=== PATIENT | female | born 1945 | race Caucasian/White ===

== ENCOUNTER 2024-05-28 13:34 | Inpatient (IN) | payer MEDICARE, OTHER ==
[~2024-05-28] VITALS: Ht 165.1 cm; Wt 62.6 kg
[2024-05-28 14:35] LABS: BASOPHILS # (AUTO) 0.1 (0.0-0.1); BASOPHILS % 0.4 % (0.0-1.0); EOSINOPHILS # (AUTO) 0.2 (0.0-0.4); EOSINOPHILS % 1.1 % (0.0-6.0); HEMATOCRIT 41.7 % (34.2-44.1); HEMOGLOBIN 13.4 g/dL (12.0-16.0); LYMPHOCYTES # (AUTO) 0.5 (1.0-3.2); LYMPHOCYTES % 3.7 % (18.0-39.1); MEAN CORPUSCULAR HEMOGLOBIN 29.5 pg (28-32); MEAN CORPUSCULAR HGB CONC 32.1 g/dL (31-35); MEAN CORPUSCULAR VOLUME 91.6 fL (81-99); MONOCYTES # (AUTO) 0.4 (0.2-0.8); NEUTROPHILS # (AUTO) 13.2 (2.1-6.9); NEUTROPHILS % 91.2 % (38.7-80.0); PLATELET COUNT 187 x10e3/uL (140-360); RED BLOOD COUNT 4.55 x10e6/uL (3.6-5.1); RED CELL DISTRIBUTION WIDTH 14.4 % (11.7-14.4); WHITE BLOOD COUNT 14.42 x10e3/uL (4.8-10.8)
[2024-05-28 14:40] LABS: INR 1.21; PROTHROMBIN TIME 15.9 seconds (11.9-14.5)
[2024-05-28 14:41] LABS: PARTIAL THROMBOPLASTIN TIME 32.6 seconds (23.8-35.5)
[2024-05-28 14:48] LABS: ALBUMIN 3.4 g/dL (3.5-5.0); ALBUMIN/GLOBULIN RATIO 0.8 (0.8-2.0); ANION GAP 17.9 mmol/L (8-16); CALCIUM 10.7 mg/dL (8.4-10.2); CREATININE, SERUM 1.53 mg/dL (0.57-1.11); POTASSIUM 3.9 mmol/L (3.5-5.1); TOTAL PROTEIN 7.8 g/dL (6.5-8.1)
[2024-05-28 14:54] LABS: TROPONIN I 0.014 ng/mL (0-0.300)
[2024-05-28] MEDS: SODIUM CHLORIDE 0.9% 1000ML 1,000 ML IV SCH ×2 (15:56→17:00)
[2024-05-28 15:57] LABS: BILIRUBIN,URINE NEGATIVE (NEGATIVE); CLARITY,URINE TURBID (CLEAR); COLOR,URINE YELLOW (YELLOW); GLUCOSE, URINE NEGATIVE (NEGATIVE); KETONES,URINE NEGATIVE (NEGATIVE); LEUKOCYTE ESTERASE ,URINE LARGE (NEGATIVE); NITRITE,URINE NEGATIVE (NEGATIVE); PH,URINE 7 (5 - 7); PROTEIN,URINE DIPSTICK >=300 (NEGATIVE); URINE UROBILINOGEN 0.2 mg/dL (0.2 - 1)
[2024-05-28] MEDS: ACETAMINOPHEN 1000 MG/100 ML IV STA (15:57)
[2024-05-28 16:08] LABS: BACTERIA,URINE MODERATE /HPF
[2024-05-28 16:09] LABS: AMORPHOUS SEDIMENT,URINE MANY (FEW)
[2024-05-28] MEDS: SODIUM CHLORIDE 0.9% 1000ML 1,000 ML IV STA (16:51)
[2024-05-28] MEDS ORDERED: SODIUM CHLORIDE FLUSH 10 ML SYR INJ PRN (17:00)
[2024-05-28] MEDS ORDERED: IOPAMIDOL 370 MG/ML 100 ML INFUS..BTL INJ ONE (17:00)
[2024-05-28 17:29] VITALS: PULSE 108; RESP 22; TEMP 99
[2024-05-28] MEDS: DIPHENHYDRAMINE HCL INJ 50 MG/ML VIAL IV ONE (18:36)
[2024-05-28 20:00] VITALS: BP 109/59; PULSE 77; RESP 17; TEMP 98.5; O2SAT 94
[2024-05-29] VITALS (7 sets, daily range): BP systolic 93–155; BP diastolic 53–82; PULSE 69–101; RESP 18–21; TEMP 98.3–100.3; O2SAT 19–100
[2024-05-29] MEDS ORDERED: TRAZODONE HCL100 MG PO (06:24)
[2024-05-29] MEDS ORDERED: CRESTOR40 MG PO (06:26)
[2024-05-29] MEDS ORDERED: CLOPIDOGREL75 MG PO (06:28)
[2024-05-29] MEDS ORDERED: LOSARTAN POTASS25 MG PO (06:29)
[2024-05-29] MEDS ORDERED: LEXAPRO20 MG PO (06:29)
[2024-05-29] MEDS ORDERED: ELIQUIS2.5 MG PO (06:30)
[2024-05-29] MEDS ORDERED: LEVOTHYROXINE88 MCG PO (06:31)
[2024-05-29] MEDS ORDERED: AMLODIPINE BESYL5 MG PO (06:32)
[2024-05-29] MEDS ORDERED: CENTRUM SILVER1 EAC8 PO (06:33)
[2024-05-29 15:41] LABS: BASOPHILS # (AUTO) 0.1 (0.0-0.1); BASOPHILS % 0.4 % (0.0-1.0); EOSINOPHILS # (AUTO) 0.1 (0.0-0.4); EOSINOPHILS % 0.2 % (0.0-6.0); HEMATOCRIT 38.1 % (34.2-44.1); HEMOGLOBIN 11.9 g/dL (12.0-16.0); LYMPHOCYTES # (AUTO) 1.1 (1.0-3.2); LYMPHOCYTES % 5.4 % (18.0-39.1); MEAN CORPUSCULAR HEMOGLOBIN 29.2 pg (28-32); MEAN CORPUSCULAR HGB CONC 31.2 g/dL (31-35); MEAN CORPUSCULAR VOLUME 93.6 fL (81-99); MONOCYTES # (AUTO) 0.9 (0.2-0.8); MONOCYTES % 4.5 % (4.4-11.3); NEUTROPHILS % 85.3 % (38.7-80.0); PLATELET COUNT 175 x10e3/uL (140-360); RED BLOOD COUNT 4.07 x10e6/uL (3.6-5.1); RED CELL DISTRIBUTION WIDTH 14.2 % (11.7-14.4); WHITE BLOOD COUNT 21.05 x10e3/uL (4.8-10.8)
[2024-05-29 15:58] LABS: ALBUMIN 2.5 g/dL (3.5-5.0); ALBUMIN/GLOBULIN RATIO 0.6 (0.8-2.0); ANION GAP 13.2 mmol/L (8-16); BILIRUBIN,TOTAL 0.6 mg/dL (0.2-1.2); CALCIUM 9.3 mg/dL (8.4-10.2); CREATININE, SERUM 1.02 mg/dL (0.57-1.11); TOTAL PROTEIN 6.5 g/dL (6.5-8.1)
[2024-05-29 15:59] LABS: POTASSIUM 3.2 mmol/L (3.5-5.1)
[2024-05-29] MEDS: APIXABAN 2.5 MG TABLET PO SCH (16:43)
[2024-05-29] MEDS: POTASSIUM CHLORIDE 20 MEQ TAB CR PO ONE (18:48)
[2024-05-29] MEDS: TRAZODONE HCL 50 MG TAB PO SCH (20:52)
[2024-05-30] VITALS (8 sets, daily range): BP systolic 120–146; BP diastolic 60–80; PULSE 60–82; RESP 16–20; TEMP 97.6–98.6; O2SAT 94–97
[2024-05-30] MEDS: LEVOTHYROXINE SODIUM 88 MCG TAB PO SCH (09:43)
[2024-05-30] MEDS: CLOPIDOGREL BISULFATE 75 MG TAB PO SCH (09:44)
[2024-05-30] MEDS: LOSARTAN POTASSIUM 25 MG TAB PO SCH (09:44)
[2024-05-30] MEDS: ESCITALOPRAM OXALATE 10 MG TAB PO SCH (09:44)
[2024-05-30 17:04] LABS: BASOPHILS # (AUTO) 0.1 (0.0-0.1); BASOPHILS % 0.4 % (0.0-1.0); EOSINOPHILS # (AUTO) 0.2 (0.0-0.4); HEMATOCRIT 35.6 % (34.2-44.1); HEMOGLOBIN 11.5 g/dL (12.0-16.0); LYMPHOCYTES # (AUTO) 1.1 (1.0-3.2); LYMPHOCYTES % 6.5 % (18.0-39.1); MEAN CORPUSCULAR HEMOGLOBIN 29.3 pg (28-32); MEAN CORPUSCULAR HGB CONC 32.3 g/dL (31-35); MEAN CORPUSCULAR VOLUME 90.6 fL (81-99); MONOCYTES % 6.2 % (4.4-11.3); NEUTROPHILS # (AUTO) 14.2 (2.1-6.9); NEUTROPHILS % 85.4 % (38.7-80.0); PLATELET COUNT 182 x10e3/uL (140-360); RED BLOOD COUNT 3.93 x10e6/uL (3.6-5.1); RED CELL DISTRIBUTION WIDTH 13.7 % (11.7-14.4); WHITE BLOOD COUNT 16.58 x10e3/uL (4.8-10.8)
[2024-05-31] VITALS (8 sets, daily range): BP systolic 118–161; BP diastolic 72–99; PULSE 65–77; RESP 16–18; TEMP 97.7–99.3; O2SAT 95–99
[2024-05-31] MEDS: LEVOTHYROXINE SODIUM 88 MCG TAB PO SCH (05:18)
[2024-05-31 06:17] LABS: BASOPHILS # (AUTO) 0.1 (0.0-0.1); BASOPHILS % 0.5 % (0.0-1.0); EOSINOPHILS # (AUTO) 0.1 (0.0-0.4); EOSINOPHILS % 0.9 % (0.0-6.0); HEMATOCRIT 36.7 % (34.2-44.1); HEMOGLOBIN 11.7 g/dL (12.0-16.0); LYMPHOCYTES # (AUTO) 1.3 (1.0-3.2); LYMPHOCYTES % 9.9 % (18.0-39.1); MEAN CORPUSCULAR HEMOGLOBIN 29.1 pg (28-32); MEAN CORPUSCULAR HGB CONC 31.9 g/dL (31-35); MEAN CORPUSCULAR VOLUME 91.3 fL (81-99); MONOCYTES # (AUTO) 0.9 (0.2-0.8); MONOCYTES % 7.1 % (4.4-11.3); NEUTROPHILS # (AUTO) 10.7 (2.1-6.9); NEUTROPHILS % 81.1 % (38.7-80.0); PLATELET COUNT 188 x10e3/uL (140-360); RED BLOOD COUNT 4.02 x10e6/uL (3.6-5.1); RED CELL DISTRIBUTION WIDTH 13.5 % (11.7-14.4); WHITE BLOOD COUNT 13.18 x10e3/uL (4.8-10.8)
[2024-05-31 06:39] LABS: ANION GAP 11.7 mmol/L (8-16); CREATININE, SERUM 0.97 mg/dL (0.57-1.11)
[2024-05-31 06:41] LABS: POTASSIUM 2.7 mmol/L (3.5-5.1)
[2024-05-31] MEDS: POTASSIUM CHLORIDE 10MEQ/100ML 100 ML IV SCH (08:06)
[2024-05-31] MEDS: POTASSIUM CHLORIDE 20 MEQ TAB CR PO STA (14:49)
[2024-05-31] MEDS: SODIUM CHLORIDE 0.9% 250ML 250 ML ONE ×2 (15:21→15:24)
[2024-05-31] MEDS: ATORVASTATIN 20 MG TAB PO SCH (20:18)
[2024-06-01 01:15] VITALS: BP 141/65; PULSE 62; RESP 17; TEMP 98.4; O2SAT 100
[2024-06-01 04:43] VITALS: BP 143/74; PULSE 68; RESP 17; TEMP 97.6; O2SAT 96
[2024-06-01 07:58] VITALS: BP 143/74; PULSE 68; RESP 17; TEMP 97.6; O2SAT 96
[2024-06-01 09:18] VITALS: BP 134/74; PULSE 65; RESP 18; TEMP 98.5; O2SAT 96
[2024-06-01] MEDS: AMLODIPINE BESYLATE 5 MG TAB PO SCH (09:51)
[2024-06-01 10:51] LABS: BASOPHILS # (AUTO) 0.1 (0.0-0.1); BASOPHILS % 0.5 % (0.0-1.0); EOSINOPHILS # (AUTO) 0.1 (0.0-0.4); EOSINOPHILS % 1.4 % (0.0-6.0); HEMATOCRIT 38.5 % (34.2-44.1); HEMOGLOBIN 12.1 g/dL (12.0-16.0); LYMPHOCYTES # (AUTO) 1.5 (1.0-3.2); LYMPHOCYTES % 15.3 % (18.0-39.1); MEAN CORPUSCULAR HEMOGLOBIN 28.8 pg (28-32); MEAN CORPUSCULAR HGB CONC 31.4 g/dL (31-35); MEAN CORPUSCULAR VOLUME 91.7 fL (81-99); MONOCYTES # (AUTO) 0.8 (0.2-0.8); MONOCYTES % 8.6 % (4.4-11.3); NEUTROPHILS # (AUTO) 7.1 (2.1-6.9); NEUTROPHILS % 73.4 % (38.7-80.0); PLATELET COUNT 233 x10e3/uL (140-360); RED CELL DISTRIBUTION WIDTH 13.8 % (11.7-14.4); WHITE BLOOD COUNT 9.73 x10e3/uL (4.8-10.8)
[2024-06-01 11:15] LABS: ANION GAP 13.3 mmol/L (8-16); CALCIUM 8.8 mg/dL (8.4-10.2); CREATININE, SERUM 0.83 mg/dL (0.57-1.11)
[2024-06-01 11:19] LABS: POTASSIUM 3.3 mmol/L (3.5-5.1)
[2024-06-01 12:51] VITALS: BP 135/72; PULSE 58; RESP 18; TEMP 98.1; O2SAT 99
[2024-06-01] MEDS ORDERED: KEFLEX125 MG/5 M PO (14:53)
[2024-06-01] MEDS: POTASSIUM CHLORIDE 20 MEQ TAB CR PO ONE (15:03)
== END 2024-06-01 16:19 | disposition home or self-care (01) | DRG 871 ==
LOC: ER 16:37 → ERHOLD 16:50 → MED/SURG2 18:34
PROVIDERS: ADMIT Internal Medicine; ATTEND Internal Medicine
PROC: 3E0333Z Introduction of Anti-inflammatory into Peripheral Vein, Percutaneous Approach (ICD-10-PCS; principal; 2024-05-28)
DX: A41.51 Sepsis due to Escherichia coli [E. coli] (principal); J96.01 Acute respiratory failure with hypoxia; N17.9 Acute kidney failure, unspecified; I69.354 Hemiplegia and hemiparesis following cerebral infarction affecting left non-dominant side; N39.0 Urinary tract infection, site not specified; N12 Tubulo-interstitial nephritis, not specified as acute or chronic; I25.10 Atherosclerotic heart disease of native coronary artery without angina pectoris; E11.9 Type 2 diabetes mellitus without complications; D18.09 Hemangioma of other sites; E87.6 Hypokalemia; I10 Essential (primary) hypertension; E03.9 Hypothyroidism, unspecified; Z11.52 Encounter for screening for COVID-19; Z79.01 Long term (current) use of anticoagulants; Z79.890 Hormone replacement therapy; Z79.02 Long term (current) use of antithrombotics/antiplatelets; Z95.5 Presence of coronary angioplasty implant and graft; Z87.891 Personal history of nicotine dependence
CPT/HCPCS: 36415; 70450; 71045; 71260; 74176; 80048; 80053; 81001; 82550; 82948; 83605; 83735; 84484; 85025; 85610; 85730; 87040; 87071; 87086; 87186; 87205; 87400; 93005; 99284; J0690; J0692; J1200; J3480; J7030; J7050; Q9967; U0002